=== PATIENT | female | born 1955 | race Caucasian/White ===

== ENCOUNTER 2020-01-16 14:13 | Outpatient (CLI) | payer MEDICARE | END 2020-01-16 14:14 | disposition home or self-care (01) | LOC: LAB 14:13 | PROVIDERS: ATTEND Ophthalmology | DX: Z01.812 Encounter for preprocedural laboratory examination (principal); H25.812 Combined forms of age-related cataract, left eye; Z20.828 Contact with and (suspected) exposure to other viral communicable diseases ==

== ENCOUNTER 2020-02-13 14:07 | Outpatient (CLI) | payer MEDICARE | END 2020-02-13 14:08 | disposition home or self-care (01) | LOC: COV 14:07 | PROVIDERS: ATTEND Ophthalmology | DX: Z01.818 Encounter for other preprocedural examination (principal); H25.811 Combined forms of age-related cataract, right eye; Z20.828 Contact with and (suspected) exposure to other viral communicable diseases ==

== ENCOUNTER 2020-02-16 07:57 | Day surgery (SDC) | payer MEDICARE ==
[~2020-02-16 07:57] MED LIST: CYCLOPENTOLATE 1% OPHTH DROPS 2 ML ONE; KETOROLAC 0.45% OPHTH DROPS ONE; PHENYLEPHRINE 2.5% OPHTH 2 ML DROPS ONE; PROPARACAINE 0.5% OPHTH DROPS 15 ML ONE
[2020-02-16] MEDS ORDERED: LACTATED RINGERS 500 ML IV ONE (08:32)
--- NOTE | 2020-02-16 08:51 | ANESTHESIA ---
Pre-Anesthesia VS, & Labs - Diagnosis R senile combined cataract - Procedure R extraction cataract w/IOL Vital Signs: Temp Pulse Resp BP Pulse Ox 36.1 C L 60 16 122/75 99 02/16/20 08:23 02/16/20 08:23 02/16/20 08:23 02/16/20 08:23 02/16/20 08:23 Height 5 ft 7 in Weight (kg) 61.9 kg - Is Patient ?: No Home Medications and Allergies No Known Home Medications 01/19/20 Allergies/Adverse Reactions: Allergies Allergy/AdvReac Type Severity Reaction Status Date / Time No Known Drug Allergies Allergy Verified 01/19/20 10:21 Anes History & Medical History - Anesthetic History Anesthesia Complications: reports: No previous complications Family history of Anesthesia Complications: Denies Family history of Malignant Hyperthermia: Denies - Medical History Cardiovascular: reports: High cholesterol Pulmonary: reports: None Gastrointestinal: reports: Colon polyps Urinary: reports: None Neuro: reports: None Musculoskeletal: reports: None Endocrine/Autoimmune: reports: None Skin: reports: None Smoking Status: Never smoker - Surgical History General: Colonoscopy Eyes Ears Nose Throat (EENT): Cataracts, Tonsil/Adenoidectomy Exam General: Alert, Oriented x3, Cooperative Dental: WNL Mouth Openin Fingerbreadth Neck Mobility: Normal Mallampati classification: I Thyromental Distance: 4-6 cm Respiratory: Lungs clear, Normal breath sounds Cardiovascular: Regular rate Neurological: Normal speech Mental/Cognitive Status: Alert/Oriented X3, Normal for patient Cognitive Status: Within normal limits Plan Anesthesia Type: MAC Consent for Procedure(s) Verified and Reviewed: Yes Code Status: Attempt Resuscitation ASA classification: 1-Healthy patient Is this case an emergency?: No
[2020-02-16] MEDS ORDERED: fentaNYL 100 MCG/2 ML VIAL IVP PRN (08:55)
[2020-02-16] MEDS ORDERED: HYDROmorphone 0.5 MG/0.5 ML SYRINGE IVP PRN (08:55)
[2020-02-16] MEDS ORDERED: ONDANSETRON 4 MG/2 ML VIAL IVP PRN (08:55)
[2020-02-16] MEDS ORDERED: ATROPINE ABBOJECT 1 MG/10 ML SYRINGE IVP PRN (08:55)
[2020-02-16] MEDS ORDERED: METOCLOPRAMIDE 10 MG/2 ML VIAL IVP PRN (08:55)
[2020-02-16] MEDS ORDERED: MORPHINE 2 MG/ML CARPUJECT IVP PRN (08:55)
[2020-02-16] MEDS ORDERED: ePHEDrine 50 MG/ML VIAL IVP PRN (08:55)
[2020-02-16] MEDS ORDERED: NALOXONE 0.4 MG/ML VIAL IVP PRN (08:55)
[2020-02-16] MEDS ORDERED: LACTATED RINGERS 1,000 ML IV SCH (09:00)
[2020-02-16] MEDS ORDERED: TRIAMCIN/MOXIFLOX OPHTHALMIC 0.6 ML VIAL IO ONE ×3 (09:28→09:48)
[2020-02-16] MEDS ORDERED: BRIMONIDINE 0.2% OPHTH DROPS 5 ML ONE (09:28)
[2020-02-16] MEDS ORDERED: EPINEPHrine 1 MG/ML AMP ONE (09:28)
[2020-02-16] MEDS ORDERED: VANCOMYCIN OPHTHALMI 8MG/0.8ML 8 MG/0.8 ML SYRINGE IO ONE ×2 (09:29→09:49)
[2020-02-16] MEDS ORDERED: BSS/LIDOCAINE/EPINEPHRINE 1 ML SYRINGE ONE (09:29)
[2020-02-16] MEDS ORDERED: TIMOLOL 0.5% OPHTH DROPS ONE (09:29)
[2020-02-16] MEDS ORDERED: MIDAZOLAM 2 MG/2 ML VIAL IVP ONE (09:30)
[2020-02-16] MEDS ORDERED: fentaNYL 100 MCG/2 ML VIAL IVP ONE (09:30)
[2020-02-16] MEDS ORDERED: PROPARACAINE 0.5% OPHTH DROPS 15 ML EACHEYE ONE (09:43)
[2020-02-16] MEDS ORDERED: BRIMONIDINE 0.2% OPHTH DROPS 5 ML OPTH ONE (09:47)
[2020-02-16] MEDS ORDERED: TIMOLOL 0.5% OPHTH DROPS OPTH ONE (09:48)
[2020-02-16] MEDS ORDERED: BSS/LIDOCAINE/EPINEPHRINE 1 ML SYRINGE IO ONE (09:48)
[2020-02-16] MEDS ORDERED: CHONDR SULF/HYALURONATE SYRINGE IO ONE (09:48)
[2020-02-16] MEDS ORDERED: EPINEPHrine 1 MG/ML AMP IR ONE (09:48)
[2020-02-16] MEDS ORDERED: LACTATED RINGERS 1,000 ML IV ONE (09:59)
--- NOTE | 2020-02-16 10:13 | ANESTHESIA POST OP EVALUATION ---
Anesthesia Post Eval - Post Anesthesia Eval Vitals: Last Vital Signs Temp 36.5 C 02/16/20 10:01 Pulse 84 02/16/20 10:01 Resp 12 02/16/20 10:01 BP 104/72 02/16/20 10:01 Pulse Ox 99 02/16/20 10:01 CV Function Including HR & BP: positive: Stable Pain Control: positive: Satisfactory Nausea & Vomiting: positive: Negative Mental Status: positive: Baseline Respiratory Status: Airway Patent Hydration Status: Satisfactory Anesthesia Complications: positive: None
[2020-02-16 10:19] VITALS: BP 116/71
--- NOTE | 2020-02-16 10:25 | OPERATIVE REPORT ---
DATE OF SERVICE: 02/16/2020 Physician: Raoul Murrieta MD PREOPERATIVE DIAGNOSIS: Visually significant cataract, right eye. Cataract surgery was performed on the left eye on 01/19/2020. POSTOPERATIVE DIAGNOSIS: Visually significant cataract, right eye. Cataract surgery was performed on the left eye on 01/19/2020. PROCEDURE: Phacoemulsification with posterior chamber intraocular lens implant, right eye. SURGEON: Raoul Murrieta MD ANESTHESIA: Monitored anesthesia care. COMPLICATIONS: None. OPERATIVE INDICATIONS: This is a 64-year-old woman with progressive vision loss in the right eye due to 2+ nuclear sclerotic and 3+ cortical cataract. Best corrected visual acuity was 20/25, with glare to 20/150. Indications for surgery were, overall decrease in vision, difficulty seeing street signs, difficulty driving in low light or at night, difficulty driving at night because of headlights from other vehicles, and difficulty with glare of bright lights in any situation. She was consented at length concerning risks and benefits of cataract surgery, after which she expressed a desire to proceed with surgery. OPERATIVE PROCEDURE: Patient was taken into OR #3 and placed under monitored anesthesia care. A surgical timeout was conducted confirming correct patient, correct procedure, and correct surgical site. She was given topical anesthesia, and prepped and draped in the usual sterile fashion. The eye was entered at the 12 and 9 o'clock positions. Intracameral Shugarcaine was injected into the anterior chamber, followed by Viscoat. A continuous-tear curvilinear capsulorrhexis was performed. The nucleus was hydrodissected and phacoemulsified. Cortex was evacuated using automated infusion and aspiration. Provisc was injected in the capsular bag and a 17.0 diopter multifocal toric intraocular lens was inserted in the bag, and rotated to axis 024. The cornea had been previously marked for horizontal axis and for axis 024 prior to coming to the OR. There was about 10 degrees of eye cyclotorsion upon lying down and that was compensated for intraoperatively. Infusion and aspiration were used to evacuate the viscoelastic materials. The eye was inflated to physiologic pressure using a balanced salt solution and found to be watertight. Approximately 0.25 mL of a mixture of triamcinolone and moxifloxacin was injected transsclerally into the vitreous in inferotemporal quadrant. An additional 0.55 mL of a mixture of triamcinolone, moxifloxacin and vancomycin was injected subconjunctivally in the superior quadrant for infection and inflammation prophylaxis. Wound integrity was checked with Weck-Sharon sponges and the IOL was verified to still be at axis 024. The patient was taken from the Operating Room in good condition and given postoperative instructions. TD: 02/16/2020 10:10 JANET
== END 2020-02-16 07:58 | disposition home or self-care (01) ==
LOC: SDS 07:57
PROVIDERS: ATTEND Ophthalmology
DX: H25.811 Combined forms of age-related cataract, right eye (principal)
CPT/HCPCS: 66984; A9270; J3490; J7120; V2632

== ENCOUNTER 2020-07-11 10:56 | Outpatient (CLI) | payer MEDICARE ==
--- NOTE | 2020-07-11 12:20 | DEXA Report ---
PROCEDURE: Dexa Spine and/or Hip INDICATIONS: SCREENING FOR OSTEOPOROSIS TECHNIQUE: Dual energy x-ray absorptiometry (DXA) was performed on a [employer] System. Regions measur ed are the AP Spine, femoral neck, and if needed forearm. COMPARISON: None. FINDINGS: Lumbar Spine: Bone Mineral Density 1.109 g/cm/cm,T score -0.6, normal Left Hip: Bone Mineral Density 0.810 g/cm/cm,T score -1.6, mild to moderate osteopenia Left Femoral Neck: Bone Mineral Density 0.813 g/cm/cm, T score -1.6, mild to moderate osteopenia (T score greater or equal to -1.0: NORMAL) (T score from -1.1 to -2.4: OSTEOPENIA) (T score less than or equal to -2.5 to: OSTEOPOROSIS) Impression: 1. Mild to moderate osteopenia within the left hip and femoral neck. Patients with diagnosis of osteoporosis or osteopenia should have regular bone mineral density assess ment. For those eligible for Medicare, routine testing is allowed once every 2 years. Testing frequ ency can be increased for patients who have rapidly progressing disease or for those who are receivin g medical therapy to restore bone mass. Reviewed by: Amisha Skinner MD on 07/11/2020 12:19 PM PST Approved by: Amisha Skinner MD on 07/11/2020 12:19 PM PST Station ID: [id number]
== END 2020-07-11 10:57 | disposition home or self-care (01) ==
LOC: DI 10:56
PROVIDERS: ATTEND Nurse Practitioner Family
DX: M85.89 Other specified disorders of bone density and structure, multiple sites (principal)

== ENCOUNTER 2020-08-16 10:53 | Day surgery (SDC) | payer MEDICARE ==
[2020-08-16] MEDS ORDERED: MIDAZOLAM 2 MG/2 ML VIAL ONE ×2 (12:14→12:17)
[2020-08-16] MEDS ORDERED: fentaNYL 250 MCG/5 ML VIAL ONE (12:14)
[2020-08-16] MEDS ORDERED: LACTATED RINGERS 1,000 ML IV ONE ×2 (12:39→12:50)
[2020-08-16 13:05] VITALS: BP 130/77
== END 2020-08-16 10:54 | disposition home or self-care (01) ==
LOC: SDS 10:53
PROVIDERS: ATTEND Surgery
DX: Z09 Encounter for follow-up examination after completed treatment for conditions other than malignant neoplasm (principal); Z86.010 Personal history of colon polyps; K57.30 Diverticulosis of large intestine without perforation or abscess without bleeding
CPT/HCPCS: 45378; J3010; J7120

== ENCOUNTER 2020-09-12 13:02 | Outpatient (CLI) | payer MEDICARE ==
--- NOTE | 2020-09-13 07:45 | Mammography Report ---
BILATERAL DIGITAL SCREENING MAMMOGRAM 3D/2D: 09/12/2020 CLINICAL: Routine screening. Comparison is made to exams dated: 01/08/2017 mammogram and 08/05/2011 mammogram - [facility]. The tissue of both breasts is predominantly fatty. No significant masses, calcifications, or other findings are seen in either breast. There has been no significant interval change. IMPRESSION: NEGATIVE There is no mammographic evidence of malignancy. A 1 year screening mammogram is recommended. This exam was interpreted at Station ID: [id number]. NOTE: For mammograms, a report in lay terms will be sent to the patient. Approximately 15% of breast malignancies will not be visualized mammographically. In the management of a palpable breast mass, a negative mammogram must not discourage biopsy of a clinically suspicious lesion. Electronically Signed By: Melvin Argueta M.D., jr/cande:09/12/2020 15:41:44 ACR BI-RADS Category 1: Negative 3341F PARENCHYMAL PATTERN: (F) - The breast(s) demonstrate(s) diffuse fatty replacement. BI-RADS CATEGORY: (1) - 1 RECOMMENDATION: (ANNUAL) - Recommend routine annual screening mammography. [id number] 1 year screening LATERALITY: (B)
== END 2020-09-12 13:03 | disposition home or self-care (01) ==
LOC: DI 13:02
PROVIDERS: ATTEND Nurse Practitioner Family
DX: Z12.31 Encounter for screening mammogram for malignant neoplasm of breast (principal)

== ENCOUNTER 2022-12-26 14:33 | Outpatient (CLI) | payer MEDICARE ==
--- NOTE | 2022-12-26 15:36 | DEXA Report ---
PROCEDURE: Dexa Spine and/or Hip INDICATIONS: POST MENOPAUSAL TECHNIQUE: Dual energy x-ray absorptiometry (DXA) was performed on a Think2 System. Regions measur ed are the AP Spine, femoral neck, and if needed forearm. COMPARISON: 07/11/2020 FINDINGS: Lumbar Spine: Bone Mineral Density 1.088 g/cm/cm,T score -0.8. There is interval 1.9% decrease in total lumbar spi ne bone density Left Femoral Neck: Bone Mineral Density 0.753 g/cm/cm, T score -2.0. Left Hip: Bone Mineral Density 0.767 g/cm/cm,T score -1.9. There is interval 5.3% decrease in left hip bone den sity (T score greater or equal to -1.0: NORMAL) (T score from -1.1 to -2.4: OSTEOPENIA) (T score less than or equal to -2.5 to: OSTEOPOROSIS) Impression: By WHO criteria, this patient has low bone density (osteopenia). Patients with diagnosis of osteoporosis or osteopenia should have regular bone mineral density assess ment. For those eligible for Medicare, routine testing is allowed once every 2 years. Testing frequ ency can be increased for patients who have rapidly progressing disease or for those who are receivin g medical therapy to restore bone mass. Reviewed by: Cristóbal Easley MD on 12/26/2022 3:34 PM PDT Approved by: Cristóbal Easley MD on 12/26/2022 3:34 PM PDT Station ID: [id number]
== END 2022-12-26 14:34 | disposition home or self-care (01) ==
LOC: DI 14:33
PROVIDERS: ATTEND Internal Medicine
DX: M85.89 Other specified disorders of bone density and structure, multiple sites (principal)

== ENCOUNTER 2022-12-26 14:35 | Outpatient (CLI) | payer MEDICARE ==
--- NOTE | 2022-12-29 08:54 | Mammography Report ---
BILATERAL DIGITAL SCREENING MAMMOGRAM 3D/2D: 12/26/2022 CLINICAL: Routine screening. Comparison is made to exams dated: 09/12/2020 mammogram - [facility], 01/08/2017 [facility], and 08/05/2011 mammogram - [facility]. There are scattered areas of fibroglandular density in both breasts (category b / 25%-50% glandular t issue). No significant masses, calcifications, or other findings are seen in either breast. There has been no significant interval change. IMPRESSION: NEGATIVE There is no mammographic evidence of malignancy. A 1 year screening mammogram is recommended. Based on the Tyrer Cuzick model (a risk assessment model) the patients lifetime risk is 5.9% and her 10 year risk is 3.3%. According to the ACR, ACS, and NCCN guidelines, an annual breast MRI exam sybil g with mammogram is recommended if the patients lifetime risk is 20% or greater. This exam was interpreted at Station ID: [id number]. NOTE: For mammograms, a report in lay terms will be sent to the patient. Approximately 15% of breast malignancies will not be visualized mammographically. In the management of a palpable breast mass, a negative mammogram must not discourage biopsy of a clinically suspicious lesion. Electronically Signed By: Mateo alcaraz/cande:12/26/2022 21:37:26 letter sent: No_Letter ACR BI-RADS Category 1: Negative 3341F PARENCHYMAL PATTERN: (A) - The breast(s) demonstrate(s) scattered fibroglandular densities. BI-RADS CATEGORY: (1) - 1 Mammogram [id number] 1 year screening LATERALITY: (B)
== END 2022-12-26 14:36 | disposition home or self-care (01) ==
LOC: DI 14:35
PROVIDERS: ATTEND Internal Medicine
DX: Z12.31 Encounter for screening mammogram for malignant neoplasm of breast (principal)